=== PATIENT | female | born 1950 | race Caucasian/White ===

== ENCOUNTER → 2017-11-09 | Outpatient (CLI) | payer MEDICARE, OTHER ==
[~2017-11-09] MED LIST: ACTOPLUS MET 851 TAB PO; ACTOS PO; ALEVE 220MG220 MG PO; ASPIR-LOW81 MG PO; ASPIRIN E.C. 8181 MG PO; CALCIUM; CALCIUM + D 6001 TA1 PO; CELEXA40 MG PO; FLOXIN OTIC DROP5 ML OT; FUROSEMIDE; GLUCOSAMINE; GLUCOSAMINE CHO1 CAP PO; HCTZ 25MG25 MG PO; HUMALOG100 U/ML SQ; INSULIN NOVOLOG; KLOR-CON M1010 MEQ PO; LANTUS SOLOS100 U/ML SQ; LASIX 20MG TABL20 MG PO; LISINOPRIL40 MG PO; LORTAB 5/500 501 TAB PO; MET PO; METOPROLOL SUCC50 M2 PO; METOPROLOL TART25 MG PO; METOPROLOL TART50 MG PO; METOPROLOL50 MG PO; MICRO-K10 MEQ PO; MULTIPLE VITAMI1 TAB PO; PRAVASTATIN40 MG PO; [UNRECOGNIZED DRUG - OTHER]; [UNRECOGNIZED DRUG - OTHER]
== END ==
LOC: MC.RAD 10:36
DX: Z12.31 Encounter for screening mammogram for malignant neoplasm of breast (principal); N63.11 Unspecified lump in the right breast, upper outer quadrant

== ENCOUNTER → 2017-11-30 | Outpatient (CLI) | payer MEDICARE, OTHER | LOC: MC.RAD 08:00 | DX: D24.1 Benign neoplasm of right breast (principal) ==

== ENCOUNTER 2018-02-26 10:56 | Day surgery (SDC) | payer MEDICARE, OTHER ==
[2018-02-26] VITALS (8 sets, daily range): BP systolic 98–145; BP diastolic 38–78; PULSE 71–85; TEMP 98.5
[~2018-02-26] VITALS: Ht 162.6 cm; Wt 131.1 kg
[2018-02-26] MEDS ORDERED: LANTUS100 U/ML SQ (11:11)
[2018-02-26] MEDS ORDERED: SYNTHROID0.05 MG/TA PO (11:12)
[2018-02-26] MEDS ORDERED: MEVACOR 20M20 MG/TAB PO (11:13)
[2018-02-26] MEDS ORDERED: PRINZIDE 12.5 M1 TA1 PO (11:15)
[2018-02-26] MEDS ORDERED: NORVASC 10MG10 MG PO (11:15)
[2018-02-26] MEDS ORDERED: LASIX 40MG TABL40 MG PO (11:16)
[2018-02-26] MEDS ORDERED: GLUCOPHAGE1000 MG PO (11:17)
[2018-02-26] MEDS ORDERED: NITROSTAT0.4 MG/TAB SL (11:21)
[2018-02-26] MEDS ORDERED: MIRALAX PA17 GM/Dose PO (11:22)
[2018-02-26] MEDS ORDERED: PHARMASSURE ZIN50 MG PO (11:24)
[2018-02-26] MEDS ORDERED: MAGNESIUM CITR100 MG PO (11:25)
[2018-02-26] MEDS ORDERED: GLUCOSAMINE MSM1 TAB PO (11:26)
[2018-02-26] MEDS ORDERED: FISH OIL 1000MG1 CAP PO (11:27)
[2018-02-26 12:00] LABS: HEMATOCRIT 39.6 % (37.0-47.0); HEMOGLOBIN 13.2 g/dl (12.5-16.0); MEAN CELL VOLUME 89 fl (80.0-100.0); MEAN CORPUSCULAR HEMOGLOBIN 30 pg (27.0-31.0); MEAN CORPUSCULAR HGB CONC 33 g/dl (33.0-37.0); MEAN PLATELET VOLUME 10.9 fl (7.4-10.4); PLATELET COUNT 188 K/mm3 (130-400); RED BLOOD COUNT 4.45 M/mm3 (4.10-5.30); REDCELL DISTRIBUTION WIDTH-CV 13.4 % (11.5-14.5)
[2018-02-26 12:07] LABS: INR 1.1 (0.8-3.0); PROTHROMBIN TIME 12.9 SECONDS (9.7-12.8)
[2018-02-26 12:11] LABS: CALCIUM 9.4 mg/dL (8.4-10.2); CREATININE, serum 0.64 mg/dL (0.52-1.25); POTASSIUM 3.7 mmol/L (3.4-5.0)
== END 2018-02-26 18:09 | disposition home or self-care (01) ==
LOC: COL.CAR 10:56
PROVIDERS: Internal Medicine Interventional Cardiology
DX: R94.39 Abnormal result of other cardiovascular function study (principal); R60.0 Localized edema; I08.3 Combined rheumatic disorders of mitral, aortic and tricuspid valves; E11.9 Type 2 diabetes mellitus without complications; Z79.4 Long term (current) use of insulin; E78.5 Hyperlipidemia, unspecified; I10 Essential (primary) hypertension; E03.9 Hypothyroidism, unspecified; G47.33 Obstructive sleep apnea (adult) (pediatric); E66.9 Obesity, unspecified; Z87.891 Personal history of nicotine dependence
CPT/HCPCS: J2250; J3010; Q9967

== ENCOUNTER → 2018-10-20 | Outpatient (CLI) | payer MEDICARE, OTHER ==
[~2018-10-20] MED LIST changes: +FISH OIL 1000MG1 CAP PO; +GLUCOPHAGE1000 MG PO; +GLUCOSAMINE MSM1 TAB PO; +LANTUS100 U/ML SQ; +LASIX 40MG TABL40 MG PO; +MAGNESIUM CITR100 MG PO; +MEVACOR 20M20 MG/TAB PO; +MIRALAX PA17 GM/Dose PO; +NITROSTAT0.4 MG/TAB SL; +NORVASC 10MG10 MG PO; +PHARMASSURE ZIN50 MG PO; +PRINZIDE 12.5 M1 TA1 PO; +SYNTHROID0.05 MG/TA PO
[2018-10-20 13:44] LABS: CALCIUM 9.9 mg/dL (8.4-10.2); CREATININE, serum 0.69 mg/dL (0.52-1.25); POTASSIUM 3.5 mmol/L (3.4-5.0)
[2018-10-20 14:20] LABS: BASO % 0.3 % (0.0-2.0); EOS # 0.1 (0.0-0.7); GRAN # 7.6 (1.4-6.5); GRAN % 74.2 % (42.2-75.2); HEMATOCRIT 41.6 % (37.0-47.0); HEMOGLOBIN 13.6 g/dl (12.5-16.0); LYMPH # 1.6 (1.2-3.4); LYMPH % 15.6 % (20.0-51.0); MEAN CELL VOLUME 89 fl (80.0-100.0); MEAN CORPUSCULAR HEMOGLOBIN 29 pg (27.0-31.0); MEAN CORPUSCULAR HGB CONC 33 g/dl (33.0-37.0); MEAN PLATELET VOLUME 10.7 fl (7.4-10.4); MONO # 0.9 (0.1-0.6); MONO % 8.3 % (1.7-9.3); PLATELET COUNT 177 K/mm3 (130-400); RED BLOOD COUNT 4.68 M/mm3 (4.10-5.30); REDCELL DISTRIBUTION WIDTH-CV 13.4 % (11.5-14.5)
[2018-10-20 14:26] LABS: MUCOUS Present /lpf; PH 6 (5-8); URINE APPEARANCE Hazy; URINE BACTERIA Many /hpf; URINE BILIRUBIN Negative (NEGATIVE); URINE BLOOD 1+ (NEGATIVE); URINE COLOR Yellow; URINE GLUCOSE 1+ (NEGATIVE); URINE KETONE Negative (NEGATIVE); URINE LEUKOCYTE ESTERASE Negative (NEGATIVE); URINE NITRATE Positive (NEGATIVE); URINE PROTEIN(semi-quant) 1+ (NEGATIVE); URINE RBC 0-2 /hpf; URINE UROBILINOGEN Negative (NEGATIVE)
[2018-10-20 14:33] LABS: COLLECTION METHOD CLEAN CATCH
== END ==
LOC: COL.LAB 12:34
PROVIDERS: Registered Nurse
DX: R91.8 Other nonspecific abnormal finding of lung field (principal); R06.02 Shortness of breath; R35.0 Frequency of micturition
CPT/HCPCS: Q9967

== ENCOUNTER → 2018-11-15 | Outpatient (CLI) | payer MEDICARE, OTHER | LOC: COL.RAD 10:46 | DX: R59.0 Localized enlarged lymph nodes (principal); R06.02 Shortness of breath | CPT/HCPCS: Q9967 ==

== ENCOUNTER → 2019-11-14 | Outpatient (CLI) | payer MEDICARE, OTHER ==
[~2019-11-14] MED LIST changes: +KRILL OIL 1,001 EAC1 PO; +PRINIVIL20 MG PO; -PRINZIDE 12.5 M1 TA1 PO; +PROAIR HFA0.09 MG/AC IH
== END ==
LOC: COL.PUL 09-12 10:00
DX: R06.02 Shortness of breath (principal); Z87.891 Personal history of nicotine dependence

== ENCOUNTER 2020-05-21 06:48 | Outpatient (CLI) | payer MEDICARE, OTHER ==
[2020-05-21] VITALS (14 sets, daily range): BP systolic 123–152; BP diastolic 55–76; PULSE 63–76
[~2020-05-21] VITALS: Ht 162.6 cm; Wt 137.5 kg
[~2020-05-21 06:48] MED LIST changes: +ALPHA LIPOIC A200 M2 PO; +CEFTIN 250250 MG/TAB PO; +CITRACAL + D CA1 TAB PO; +ELIQUIS 5MG PO; +K-TAB20 PO; +KLONOPIN 0.5MG0.5 MG PO; +PACERONE200 MG PO; +ZITHROMAX Z PA250 MG PO
--- NOTE | 2020-05-21 11:15 | NUR ---
PT DISCHARGED VIA W/C TO CAR WITH FRIEND
== END 2020-05-21 11:15 | disposition home health service (06) ==
LOC: COL.RAD 06:48
DX: R91.1 Solitary pulmonary nodule (principal)
CPT/HCPCS: 32120

== ENCOUNTER → 2020-08-13 | Outpatient (CLI) | payer MEDICARE, OTHER ==
[2020-08-13 14:02] LABS: CALCIUM 9.6 mg/dL (8.4-10.2); CREATININE, serum 0.96 (0.52-1.25); POTASSIUM 4.4 mmol/L (3.4-5.0)
== END ==
LOC: COL.RAD 12:28
PROVIDERS: Internal Medicine Pulmonary Disease
DX: I34.0 Nonrheumatic mitral (valve) insufficiency (principal); I51.7 Cardiomegaly; I27.20 Pulmonary hypertension, unspecified; R91.1 Solitary pulmonary nodule
CPT/HCPCS: Q9967

== ENCOUNTER 2021-02-21 10:12 | Observation (INO) | payer MEDICARE, OTHER ==
[~2021-02-21] VITALS: Ht 162.6 cm; Wt 134.1 kg
[2021-02-21 11:17] LABS: COLLECTION METHOD RANDOM VOIDED
[2021-02-21 11:20] LABS: BASO % 0.3 % (0.0-2.0); EOS # 0.1 (0.0-0.7); EOS % 1.2 % (0-4.0); GRAN # 7.5 (1.4-6.5); GRAN % 80.5 % (42.2-75.2); HEMATOCRIT 42.3 % (37.0-47.0); HEMOGLOBIN 13.2 g/dl (12.5-16.0); LYMPH # 1.2 (1.2-3.4); LYMPH % 12.8 % (20.0-51.0); MEAN CELL VOLUME 92 fl (80.0-100.0); MEAN CORPUSCULAR HEMOGLOBIN 29 pg (27.0-31.0); MEAN CORPUSCULAR HGB CONC 31 g/dl (33.0-37.0); MEAN PLATELET VOLUME 11.3 fl (7.4-10.4); MONO # 0.4 (0.1-0.6); MONO % 4.4 % (1.7-9.3); PLATELET COUNT 218 K/mm3 (130-400); RED BLOOD COUNT 4.61 M/mm3 (4.10-5.30); REDCELL DISTRIBUTION WIDTH-CV 14.8 % (11.5-14.5)
[2021-02-21 11:25] LABS: PH 6 (5-8); SQUAMOUS EPITHELIAL 0-2 /hpf; URINE APPEARANCE Hazy; URINE BACTERIA Rare /hpf; URINE BILIRUBIN Negative (NEGATIVE); URINE BLOOD 2+ (NEGATIVE); URINE COLOR Yellow; URINE GLUCOSE 3+ (NEGATIVE); URINE KETONE Trace (NEGATIVE); URINE LEUKOCYTE ESTERASE Negative (NEGATIVE); URINE NITRATE Positive (NEGATIVE); URINE PROTEIN(semi-quant) 2+ (NEGATIVE); URINE RBC 0-2 /hpf; URINE UROBILINOGEN Negative (NEGATIVE)
[2021-02-21 11:29] LABS: ALBUMIN 4.5 gm/dL (3.5-5.0); BILIRUBIN,TOTAL 1.3 mg/dL (0.0-1.0); CALCIUM 9.2 mg/dL (8.4-10.2); CREATININE, serum 0.89 (0.52-1.25); POTASSIUM 4.3 mmol/L (3.4-5.0); TOTAL PROTEIN 8.1 gm/dL (6.4-8.2)
[2021-02-21 11:42] LABS: TROPONIN-I 0.019 ng/mL (0.000-0.035)
[2021-02-21 13:48] LABS: ARTERIAL BLD GAS O2 SATURATION 95.9 % (92-100); ARTERIAL BLD GAS TCO2 CT 25.9; ARTERIAL BLOOD GAS BASE EXCESS 0.2 (-2-2); ARTERIAL BLOOD GAS HCO3 24.7 meq/L (22-26); ARTERIAL BLOOD GAS PCO2 39.6 mmHg (35-45); ARTERIAL BLOOD GAS pH 7.41 (7.35-7.45)
[2021-02-21 16:00] VITALS: BP 143/50; PULSE 52; TEMP 97.8
[2021-02-21] MEDS ORDERED: ASPIRIN E.C. 8181 MG PO (16:33)
[2021-02-21] MEDS ORDERED: BYSTOLIC10 MG PO (17:03)
--- NOTE | 2021-02-21 17:05 | NUR ---
ADEOLA VALERIO CALLED AND NOTIFIED THAT PATIENT ADMISSION IS COMPLETE. MED REC REVIEWED AND COMPLETED. THERE ARE MULTIPLE MEDICATIONS THAT HAVE BEEN RESTARTED BY THE PHYSICIAN THAT THE PATIENT IS NO LONGER TAKING. ADEOLA VALERIO TO HAVE REVIEW AND UPDATE PATIENT MEDICATION LIST.
[2021-02-21 17:08] VITALS: BP 158/55
--- NOTE | 2021-02-21 18:11 | NUR ---
PRESENT IN ROOM WITH PATIENT.
[2021-02-21 19:02] VITALS: BP 141/45; PULSE 52; TEMP 98
--- NOTE | 2021-02-21 20:30 | NUR ---
Initial shift assessment done-denies pain, SOB with exertion, 02 at 3L/nc, Lung sounds decreased in bases, sitting up in chair-states thats where she is going to sleep tonight. VSS. Will check blood sugar at 2130--pt not sure if she wants her insulin tonight--she did refuse her short acting insulin earlier tonight.
[2021-02-21 22:34] VITALS: BP 142/44; PULSE 56; TEMP 97.8
--- NOTE | 2021-02-21 22:50 | NUR ---
Did call Neisha CALIXTO to go over her home meds that needed clarifying--pt states no longer takes the Ceftin or the Eliquis,, states Dr. Swift dcd, the Eliquis 2 weeks ago at her last appt,, also bystolic was started at this appt and ASA was decreased to 81mg/day po... Neisha CALIXTO put in orders for the changes,, also informed of the Troponin of 0.040,, Dr. Swift also was here around 2200 tonight - informed of troponin and he stated he was not notified of this consult-according to consult order he had been notified,, he did go in and talk w/ patient at this time
[2021-02-22] VITALS (7 sets, daily range): BP systolic 124–175; BP diastolic 42–55; PULSE 47–62; TEMP 97.6–98.3
--- NOTE | 2021-02-22 05:15 | NUR ---
Quiet night- has been resting in the recliner for the past 4-5 hours. VSS. Has been bradycardic from 45-50beats/min per tele all night. 96% on 3L/nc 02. Had 1400cc clear yellow urine out this shift.
[2021-02-22 08:45] LABS: HEMATOCRIT 40.2 % (37.0-47.0); HEMOGLOBIN 12.4 g/dl (12.5-16.0); MEAN CELL VOLUME 92 fl (80.0-100.0); MEAN CORPUSCULAR HEMOGLOBIN 29 pg (27.0-31.0); MEAN CORPUSCULAR HGB CONC 31 g/dl (33.0-37.0); MEAN PLATELET VOLUME 11.3 fl (7.4-10.4); PLATELET COUNT 189 K/mm3 (130-400); RED BLOOD COUNT 4.35 M/mm3 (4.10-5.30); REDCELL DISTRIBUTION WIDTH-CV 14.9 % (11.5-14.5)
[2021-02-22 08:54] LABS: CREATININE, serum 0.91 (0.52-1.25); POTASSIUM 3.7 mmol/L (3.4-5.0)
[2021-02-22 09:06] LABS: TROPONIN-I 0.025 ng/mL (0.000-0.035)
--- NOTE | 2021-02-22 09:45 | NUR ---
PATIENT ALERT & ORIENTED. VITAL SIGNS STABLE. DENIES SOB WITH OXYGEN AT 3L VIA NC. DENIES PAIN AT THIS TIME. TOLERATING HEART HEALTHY DIET AND DENIES N/V. PATIENT ADMITTED FOR SOB AND CHF. 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 ASCULTATION OF HEART SOUNDS NORMAL WITH S1 & S2 HEARD. ALL OTHER ASSESSMENTS WITHIN NORMAL LIMITS. BILATERAL LOWER EXTREMITY EDEMA. MORNING MEDICATIONS ADMINISTERED AFTER BREAKFAST FINISHED AND BLOOD SUGAR 276. DENIES OTHER NEEDS AT THIS TIME. WILL CONTINUE TO MONITOR.
--- NOTE | 2021-02-22 10:11 | NUR ---
Several visit attempts; Boatswain'S Mate left prayer card offering God's blessings and information regarding the availability of spiritual care at our hospital.
[2021-02-22 10:27] LABS: INR 1.2 (0.8-3.0)
--- NOTE | 2021-02-22 11:56 | NUR ---
[facility] CALLED AND NOTIFIED THIS NURSE THAT RADIOLOGY DOES NOT SEE ENOUGH FLUID PRESENT IN EITHER LUNG FOR A THORACENTESIS. ADEOLA DOMINGUEZ NOTIFIED.
--- NOTE | 2021-02-22 14:28 | NUR ---
PATIENT CALLED OUT TO THE NURSING DESK STATING THAT SHE FEELS HER BLOOD SUGAR IS DROPPING AND SHE'S SWEATING. BLOOD GLUCOSE 56. PATIENT GIVEN GRAPE JUICE AND CHOCOLATE PUDDING. WILL RECHECK BLOOD SUGAR. NOTIFIED. THIS NURSE AND SPOKE WITH PATIENT. PHYSICIAN ADJUSTING DIABETIC MEDICATIONS. WILL CONTINUE TO MONITOR.
--- NOTE | 2021-02-22 14:45 | NUR ---
Nuclear Security Officer met with the patient to complete intake. The patient lives alone (with two cats) in [place]. The patient denies DME use and is independent. The patient's PCP is Dr. Marsh and receives medications from [facility]. The patient has advanced directives in the EMR. The patient plans to return home at discharge. Her friend Zina will give her a ride home. PT is recommending home. The patient is currently on oxygen and is not on oxygen at baseline. *Discharge disposition* Home
--- NOTE | 2021-02-22 20:00 | NUR ---
Report received, assumed care for night manager. Assessment complete. VS stable. A&Ox3. Denies pain/nausea/shortness of breath at rest. States she does get a little short of breath with activity. O2 was removed at 1900 to see if O2 saturations maintained-currently 94% or RA. INT to right forearm noted to be red-edema with flushing. DCd at this time. New INT placed to left [id number] attempt. Tolerated well. Plan of care discussed for this shift to include HS meds/tele/mmonitoring O2 sats/calling for questions/concerns. Verbalizes understanding/denies needs. Call light in reach. Will monitor.
--- NOTE | 2021-02-22 21:00 | NUR ---
Discussed HS dose of levemir. States she doesnt really want to take it at due to episodes of hypoglycemia and it measuring 109 earlier in shift. Did allow this nurse to recheck at this time-89. Given a snack and encouraged to keep this nurse informed if S/S of hypoglycemia appear. Did refuse HS dose of Levemir.
--- NOTE | 2021-02-23 00:30 | NUR ---
Sitting up in chair-states she has been voiding a lot since HS dose of Lasix. Denies s/s of hypoglycemia. Denies current needs. Call light in reach. Will monitor.
[2021-02-23 04:08] VITALS: BP 139/50; PULSE 51; TEMP 98.1
--- NOTE | 2021-02-23 06:08 | NUR ---
Rested well this shift. Slept in recliner-states this is how she sleeps at home. Vitals remained stable. O2 sats WNL on room air. Denies questions/concerns at this time. Call light in reach. Will monitor.
[2021-02-23 06:39] LABS: HEMATOCRIT 38.2 % (37.0-47.0); HEMOGLOBIN 11.8 g/dl (12.5-16.0); MEAN CELL VOLUME 93 fl (80.0-100.0); MEAN CORPUSCULAR HEMOGLOBIN 29 pg (27.0-31.0); MEAN CORPUSCULAR HGB CONC 31 g/dl (33.0-37.0); MEAN PLATELET VOLUME 11.3 fl (7.4-10.4); PLATELET COUNT 184 K/mm3 (130-400); RED BLOOD COUNT 4.13 M/mm3 (4.10-5.30); REDCELL DISTRIBUTION WIDTH-CV 14.9 % (11.5-14.5)
[2021-02-23 06:53] LABS: CALCIUM 8.8 mg/dL (8.4-10.2); CREATININE, serum 0.97 (0.52-1.25); POTASSIUM 3.7 mmol/L (3.4-5.0)
[2021-02-23 08:48] VITALS: BP 120/47; PULSE 52; TEMP 98.5
[2021-02-23] MEDS ORDERED: OMNICEF 300MG300 MG PO (10:51)
--- NOTE | 2021-02-23 14:01 | NUR ---
PT DOES QUALIFY FOR [facility] O2 BUT DOES NOT WANT IT AT THIS TIME.
--- NOTE | 2021-02-23 14:47 | NUR ---
PT HAD ALREADY QUALIFIED FOR HOME O2 BUT REFUSED AT THE TIME. PT HAS SINCE CHANGED HER MIND AND WOULD LIKE TO HAVE HOME O2. PT HAD BEEN ON 2 LPM NC WITH SPO2 IN THE LOW 90S DOING WELL AT THAT LITER FLOW.
[2021-02-23] MEDS ORDERED: OXYGEN NASAL.CANN (14:52)
--- NOTE | 2021-02-23 15:19 | NUR ---
SW was contacted to report that patient would require home oxygen per results of exercise ox test. Patient faxed oxygen orders to [facility] and spoke with on-call staff. associate chief nurse will bring portable tank shortly to cover patient for the weekend and then set up home O2 fully on Sunday 02/25. Patient will discharge today 02/23 when oxygen has arrived.
--- NOTE | 2021-02-23 17:00 | NUR ---
Patient taken by wheelchair to the ER entrance. Portable oxygen delivered to the patient from [facility]. Discharge paperwork, personal belongings and O2 with the patient.
== END 2021-02-23 17:00 | disposition home or self-care (01) ==
LOC: COL.ER 10:12 → MEDICAL 13:12
PROVIDERS: Nurse Practitioner Primary Care; Physician Assistant
DX: J90 Pleural effusion, not elsewhere classified (principal); I48.91 Unspecified atrial fibrillation; N39.0 Urinary tract infection, site not specified; B96.89 Other specified bacterial agents as the cause of diseases classified elsewhere; I10 Essential (primary) hypertension; E11.9 Type 2 diabetes mellitus without complications; Z79.4 Long term (current) use of insulin; E66.01 Morbid (severe) obesity due to excess calories; E87.2 Acidosis; E03.9 Hypothyroidism, unspecified; I27.20 Pulmonary hypertension, unspecified; Z88.1 Allergy status to other antibiotic agents; Z79.82 Long term (current) use of aspirin; I25.10 Atherosclerotic heart disease of native coronary artery without angina pectoris; Z87.891 Personal history of nicotine dependence; I08.1 Rheumatic disorders of both mitral and tricuspid valves
CPT/HCPCS: 99239; G0378; J1650; J1815; J1940; J7030; Q9967

== ENCOUNTER → 2021-05-08 | Outpatient (CLI) | payer MEDICARE, OTHER ==
[~2021-05-08] MED LIST changes: +BYSTOLIC10 MG PO; +OMNICEF 300MG300 MG PO; +OXYGEN NASAL.CANN
== END ==
LOC: COL.RAD 11:46
DX: J90 Pleural effusion, not elsewhere classified (principal); I51.7 Cardiomegaly; R91.1 Solitary pulmonary nodule
CPT/HCPCS: A9540; A9567

== ENCOUNTER 2021-08-07 16:28 | Emergency (ER) | payer MEDICARE, OTHER ==
[~2021-08-07] VITALS: Ht 162.6 cm; Wt 131.4 kg
[2021-08-07 17:46] LABS: BASO % 0.4 % (0.0-2.0); EOS # 0.1 K/mm3 (0.0-0.7); EOS % 1.2 % (0-4.0); GRAN # 6.8 K/mm3 (1.4-6.5); GRAN % 79.5 % (42.2-75.2); HEMATOCRIT 38.8 % (37.0-47.0); HEMOGLOBIN 11.7 g/dl (12.5-16.0); MEAN CELL VOLUME 92 fl (80.0-100.0); MEAN CORPUSCULAR HEMOGLOBIN 28 pg (27.0-31.0); MEAN CORPUSCULAR HGB CONC 30 g/dl (33.0-37.0); MEAN PLATELET VOLUME 11.1 fl (7.4-10.4); MONO # 0.6 K/mm3 (0.1-0.6); MONO % 6.5 % (1.7-9.3); PLATELET COUNT 209 K/mm3 (130-400); RED BLOOD COUNT 4.22 M/mm3 (4.10-5.30); REDCELL DISTRIBUTION WIDTH-CV 15.4 % (11.5-14.5)
[2021-08-07 17:59] LABS: ALBUMIN 3.6 gm/dL (3.4-4.8); CALCIUM 8.9 mg/dL (8.4-10.2); CREATININE, serum 0.85 mg/dL (0.57-1.11); POTASSIUM 3.7 mmol/L (3.5-4.5)
[2021-08-07 18:05] LABS: TROPONIN-I 0.013 ng/mL (0.00-0.033)
[2021-08-07 20:24] VITALS: BP 178/86; PULSE 52; TEMP 98.4
== END 2021-08-07 20:24 | disposition home or self-care (01) ==
LOC: COL.ER 16:28
PROVIDERS: Physician Assistant
DX: I11.0 Hypertensive heart disease with heart failure (principal); I50.9 Heart failure, unspecified; E11.9 Type 2 diabetes mellitus without complications; E66.01 Morbid (severe) obesity due to excess calories; E78.5 Hyperlipidemia, unspecified; I25.10 Atherosclerotic heart disease of native coronary artery without angina pectoris; I48.91 Unspecified atrial fibrillation; I25.2 Old myocardial infarction; Z79.4 Long term (current) use of insulin; Z79.899 Other long term (current) drug therapy; Z79.84 Long term (current) use of oral hypoglycemic drugs; Z79.82 Long term (current) use of aspirin; Z68.42 Body mass index [BMI] 45.0-49.9, adult; Z20.822 Contact with and (suspected) exposure to COVID-19